=== PATIENT | female | born 1995 | race African-American/Black ===

== ENCOUNTER 2017-02-02 02:51 | Emergency (ER) | payer BC ==
[~2017-02-02 02:51] MED LIST: AMOXICILLIN500 M1 PO; AURALGAN EAR DR14 ML AS; IBUPROFEN PO; NO MEDICATIONS; VICODIN 5/500 T1 TAB PO; VOLTAREN75 MG PO
[2017-02-02] MEDS ORDERED: BIRTH CONTROL PILL PO (03:01)
== END 2017-02-02 03:28 | disposition home or self-care (01) ==
LOC: SED 02:51
DX: J06.9 Acute upper respiratory infection, unspecified (principal); H92.03 Otalgia, bilateral
CPT/HCPCS: 99282